=== PATIENT | female | born 2000 | race Two or more races ===

== ENCOUNTER 2023-03-13 10:48 | Emergency (ER) | payer SELFPAY ==
[2023-03-13] MEDS ORDERED: Orphenadrine 100 MG Tab.ER PO ONE (11:18)
[2023-03-13] MEDS ORDERED: predniSONE 20 MG Tab PO ONE (11:18)
[2023-03-13 11:44] LABS: BASOPHILS PERCENT AUTO 0.7 % (0.0-1.0); EOSINOPHILS ABSOLUTE AUTO 0.2 K/mm3 (0.0-0.4); EOSINOPHILS PERCENT AUTO 2.9 % (0.0-6.0); HEMATOCRIT 37.4 % (37.0-47.0); HEMOGLOBIN 12.5 gm/dl (12.0-16.0); IMMATURE GRAN ABSOLUTE AUTO 0.01 K/mm3 (0.00-0.05); IMMATURE GRAN PERCENT AUTO 0.2 % (0.0-0.4); LYMPHOCYTES ABSOLUTE AUTO 1.9 K/mm3 (1.0-4.8); LYMPHOCYTES PERCENT AUTO 30.2 % (24.0-44.0); MEAN CORPUSCULAR HGB CONC 33.4 g/dl (32.0-36.0); MEAN CORPUSCULAR VOLUME 89.7 fl (83.0-99.0); MEAN PLATELET VOLUME 11.4 fl (9.4-12.3); MONOCYTES ABSOLUTE AUTO 0.5 K/mm3 (0.0-0.8); MONOCYTES PERCENT AUTO 7.5 % (0.0-8.0); NEUTROPHILS ABSOLUTE AUTO 3.6 K/mm3 (1.8-7.7); NEUTROPHILS PERCENT AUTO 58.5 % (41.0-71.0); PLATELET COUNT,PLT 194 K/mm3 (150-400); RED BLOOD CELL COUNT 4.17 M/mm3 (4.10-5.30); WHITE BLOOD CELL COUNT,WBC 6.12 K/mm3 (3.9-11.3)
[2023-03-13 11:58] LABS: ANION GAP 11.5 (5-15); BUN/CREATININE RATIO 12.5 (14-18); CALCIUM 8.9 mg/dL (8.5-10.1); CREATININE 0.8 mg/dL (0.55-1.02); EST CRCL DRUG DOSING (CG) 83.23 mL/min; POTASSIUM,K 3.5 mEq/L (3.5-5.1)
[2023-03-13] MEDS ORDERED: Ketorolac 60 MG/2 ML SDV IM ONE (12:09)
[2023-03-14] MEDS ORDERED: predniSONE 20 MG Tab PO ONE (11:18)
== END 2023-03-13 13:15 | disposition home or self-care (01) ==
LOC: JD.ED 10:48
DX: G62.9 Polyneuropathy, unspecified (principal)
CPT/HCPCS: 36415; 72040; 80048; 85025; 96372; 99283; A9270; J1885; J7512; 99284

== ENCOUNTER 2023-06-26 09:59 | Emergency (ER) | payer MEDICAID ==
[2023-06-26] MEDS ORDERED: Ketorolac 60 MG/2 ML SDV IM ONE (11:20)
[2023-06-26] MEDS ORDERED: Cyclobenzaprine 10 MG Tab PO ONE (11:20)
== END 2023-06-26 12:45 | disposition home or self-care (01) ==
LOC: JD.ED 09:59
DX: M53.3 Sacrococcygeal disorders, not elsewhere classified (principal); F17.210 Nicotine dependence, cigarettes, uncomplicated
CPT/HCPCS: 72100; 72100-26; 72220; 72220-26; 96372; 99283; A9270-GY; J1885

== ENCOUNTER 2024-10-13 09:54 | Emergency (ER) | payer MEDICAID ==
[2024-10-13] MEDS ORDERED: Sodium Chloride 0.9% 10 ML Syringe FLUSH PRN (10:49)
[2024-10-13 11:00] LABS: APPEARANCE,URINE CLEAR (Clear); BILIRUBIN,URINE NEGATIVE (Negative); COLOR,URINE LIGHT YELLOW (Yellow); GLUCOSE,URINE NEGATIVE (Negative); KETONES,URINE NEGATIVE (Negative); LEUKOCYTE ESTERASE,URINE 1+ (Negative); NITRITE,URINE NEGATIVE (Negative); OCCULT BLOOD,URINE NEGATIVE (Negative); PROTEIN,URINE NEGATIVE (Negative); UROBILINOGEN,URINE 0.2 (0.2-1.0)
[2024-10-13] MEDS: Sodium Chloride 0.9% 1,000 ML IV STA (11:04)
[2024-10-13] MEDS: Ondansetron 4 MG/2 ML SDV IVPUSH ONE (11:04)
[2024-10-13 11:15] LABS: BASOPHILS PERCENT AUTO 0.3 % (0.0-1.0); EOSINOPHILS ABSOLUTE AUTO 0.2 K/mm3 (0.0-0.4); EOSINOPHILS PERCENT AUTO 1.9 % (0.0-6.0); HEMATOCRIT 38.7 % (37.0-47.0); HEMOGLOBIN 13.1 gm/dl (12.0-16.0); IMMATURE GRAN ABSOLUTE AUTO 0.02 K/mm3 (0.00-0.05); IMMATURE GRAN PERCENT AUTO 0.2 % (0.0-0.4); LYMPHOCYTES ABSOLUTE AUTO 1.5 K/mm3 (1.0-4.8); LYMPHOCYTES PERCENT AUTO 16.2 % (24.0-44.0); MEAN CORPUSCULAR HEMOGLOBIN 29.3 pg (28.0-32.0); MEAN CORPUSCULAR HGB CONC 33.9 g/dl (32.0-36.0); MEAN CORPUSCULAR VOLUME 86.6 fl (83.0-99.0); MEAN PLATELET VOLUME 11.4 fl (9.4-12.3); MONOCYTES ABSOLUTE AUTO 0.6 K/mm3 (0.0-0.8); NEUTROPHILS ABSOLUTE AUTO 6.8 K/mm3 (1.8-7.7); NEUTROPHILS PERCENT AUTO 74.4 % (41.0-71.0); PLATELET COUNT,PLT 225 K/mm3 (150-400); RED BLOOD CELL COUNT 4.47 M/mm3 (4.10-5.30); WHITE BLOOD CELL COUNT,WBC 9.16 K/mm3 (3.9-11.3)
[2024-10-13 11:20] LABS: BACTERIA,URINE RARE /hpf (FEW); MUCUS,URINE NOT SEEN /hpf (FEW); RBC,URINE 0-5 /hpf (0-5); SQUAMOUS EPITHELIAL CELLS,UR 0-5 /hpf (0-5); WBC,URINE 0-5 /hpf (0-5)
[2024-10-13 12:10] LABS: A/G RATIO 1.2 (1-2); ANION GAP 11.4 (5-15); BILIRUBIN TOTAL 0.4 mg/dL (0.2-1.0); CALCIUM 9.5 mg/dL (8.5-10.1); CREATININE 0.8 mg/dL (0.55-1.02); EST CRCL DRUG DOSING (CG) 81.82 mL/min; MAGNESIUM 1.4 mg/dL (1.8-2.4); POTASSIUM,K 3.4 mEq/L (3.5-5.1); PROTEIN TOTAL,TP 7.4 g/dl (6.4-8.2)
[2024-10-13 12:35] LABS: SLIDE REVIEW NORMAL SMEAR
== END 2024-10-13 14:27 | disposition home or self-care (01) ==
LOC: JD.ED 09:54
DX: O99.511 Diseases of the respiratory system complicating pregnancy, first trimester (principal); O10.011 Pre-existing essential hypertension complicating pregnancy, first trimester; J06.9 Acute upper respiratory infection, unspecified; B97.89 Other viral agents as the cause of diseases classified elsewhere; Z3A.01 Less than 8 weeks gestation of pregnancy
CPT/HCPCS: 36415; 71045; 71045-26; 76817; 76817-26; 80053; 81001; 83735; 84702; 85025; 86900; 86901; 87428-QW; 96361; 96374; 99284; 99285-25; J2405; J7030